=== PATIENT | female | born 1985 | race Caucasian/White ===

== ENCOUNTER 2019-12-31 14:20 | Emergency (ER) | payer SELFPAY ==
[~2019-12-31] VITALS: Ht 172.7 cm; Wt 70.0 kg
[2019-12-31 14:58] VITALS: BP 122/82
== END 2019-12-31 17:00 | disposition home or self-care (01) ==
LOC: ER 15:50
DX: Z03.818 Encounter for observation for suspected exposure to other biological agents ruled out (principal)
CPT/HCPCS: 87635; 99283; C9803